=== PATIENT | female | born 1950 | race Caucasian/White ===

== ENCOUNTER 2016-10-01 09:44 | Day surgery (SDC) | payer OTHER ==
[~2016-10-01 09:44] MED LIST: 1-ME1LIQ PO; ASPI81TA82 PO; ATOR20TA PO; FISH100020 PO; IRBE150T49 PO; LORA-392 PO; PREM0.45 PO; ZOFR4TAB3 PO; [UNRECOGNIZED DRUG - CODE]
[2016-10-01 09:59] VITALS: BP 159/84; PULSE 78; RESP 20; TEMP 97.9; O2SAT 98
== END 2016-10-01 10:15 | disposition home or self-care (01) ==
LOC: HROP 09:44 → HRIP 09:46 → HROP 10:15
PROVIDERS: ATTEND Radiology Radiation Oncology
DX: Z45.2 Encounter for adjustment and management of vascular access device (principal); C32.8 Malignant neoplasm of overlapping sites of larynx

== ENCOUNTER 2016-10-30 06:26 | Day surgery (SDC) | payer OTHER ==
[~2016-10-30] VITALS: Ht 147.3 cm; Wt 52.3 kg
[2016-10-30 06:57] VITALS: BP 147/77; PULSE 68; RESP 20; TEMP 97.6; O2SAT 97
[2016-10-30] MEDS ORDERED: ceFAZolin 2 GM PREMIX 50 ML - implanted port removal IV SCH (07:15)
[2016-10-30] MEDS ORDERED: SODIUM CHLORIDE 0.9% 1000 ML IV SCH (07:15)
[2016-10-30] MEDS ORDERED: LIDOCAINE 1%/EPINEPHrine 1:100,000 SOLN 20 ML VIAL ONE (08:38)
[2016-10-30 09:05] VITALS: BP 135/67; PULSE 80; RESP 16; TEMP 98; O2SAT 97
--- NOTE | 2016-10-30 09:08 | PD.RAD ---
Post Procedure Progress Note Pre Procedure Diagnosis: (1) Laryngeal cancer Post Procedure Diagnosis: (1) Laryngeal cancer Procedure Date: Oct 30, 2016 Supervising Radiologist: Hemant Nguyen JR Proceduralist/Assist: Carlita Leary, RT(R), Meg Martinez, RT(R)() Anesthesia: Local Plan of Activity Patient to Unit: ROPU Patient Condition: Good See PACS Report for procedural detail/treatment Central Venous Access Device Procedure 1 Right Internal Jugular Infusaport Removal single lumen Findings: Right port removed without difficulty. Plan F/U with IR or a physician in 10-14 days for a site check Jr. Patrick,Hemant Ramirez MD Oct 30, 2016 09:07
[2016-10-30 09:20] VITALS: BP 131/77; PULSE 70; RESP 16; O2SAT 98
--- NOTE | 2016-10-30 11:46 | RADRPT ---
EXAM DATE/TIME: 10/30/2016 07:42 [facility] COMPARISON: No previous studies available for comparison. INDICATIONS : Patient is in need of a removal of existing Infusaport as it is no longer needed. MEDICAL HISTORY : History of squamous cell laryngeal cancer, HTN, hypercholesteremia, diverticulosis, Crohn's disease, pneumonia, ankle skin cancer. SURGICAL HISTORY : History of port placeement, g-tube placeemnt, right ankle resection, occipital nerve surghery, colon resection, partial hysterectomy, cervical nerve clipping, L5 discectomy. ENCOUNTER: Subsequent ACUITY: 4-6 months PAIN SCORE: 0/10 Prophylactic antibiotics were administered with appropriate pre-procedure timing. Vancomycin within 2 hrs of procedure, Ancef (or alternative) within 1 hr of procedure. PROCEDURE : 1. Removal of [id number]-a-glvt. 2. Conscious sedation with continuous EKG and oximetry monitoring. The risk, benefits and potential complications of Ygdmpy-g-[id number] removal were discussed. Written conse nt was obtained. The patient was placed supine. The chest wall was prepped in sterile fashion. Full sterile techniqu e was used, including cap, mask, sterile gloves and gown, and a large sterile sheet. Hand hygiene an d 2% chlorhexidine and/or Betadine/alcohol prep was utilized per protocol for cutaneous antisepsis. The skin and subcutaneous tissues were infiltrated with local anesthetic solution. A small incision w as made, the subcutaneous pocket was opened. The port was dissected from the subcutaneous tissues and easily removed in one piece. The pocket incision was closed with subcuticular Vicryl suture. Steri -Strips were applied. Conscious sedation was performed with the prescribed dosages and duration as above in the presence of an independent trained radiology nurse to assist in the monitoring of the patient. EKG and oximetry remained stable throughout the procedure. The patient tolerated the procedure well and there were no complications. The patient was sent to post anesthesia recovery in stable condition. CONCLUSION: Uncomplicated port removal as above. Hemant Nguyen Jr., MD on October 30, 2016 at 10:31 Board Certified Radiologist. This report was verified electronically.
== END 2016-10-30 09:35 | disposition home or self-care (01) ==
LOC: HROP 06:26 → HRIP 06:29 → HROP 09:35
PROVIDERS: ATTEND Internal Medicine Hematology & Oncology
DX: Z45.2 Encounter for adjustment and management of vascular access device (principal); C32.9 Malignant neoplasm of larynx, unspecified; I10 Essential (primary) hypertension; E78.00 Pure hypercholesterolemia, unspecified; K50.90 Crohn's disease, unspecified, without complications
CPT/HCPCS: 36590; J0690; J7030